=== PATIENT | male | born 1960 | race Caucasian/White ===

== ENCOUNTER → 2023-01-23 11:55 | Outpatient (BNVA) | payer OTHER, SELFPAY | PROVIDERS: Visit Provider Nurse Practitioner Family | DX: M25.50 Pain in unspecified joint (principal); F41.9 Anxiety disorder, unspecified; F32.A Depression, unspecified; D64.9 Anemia, unspecified | CPT/HCPCS: 80053; 80061; 82306; 82607; 83550; 83735; 84443; 84550; 85025; 85651; 86038; 86140; 86200; 86431 ==

== ENCOUNTER → 2023-07-21 12:12 | Outpatient (BNVA) | payer OTHER, SELFPAY | PROVIDERS: PCP Nurse Practitioner Family; Visit Provider Nurse Practitioner Family | DX: E78.5 Hyperlipidemia, unspecified (principal); E55.9 Vitamin D deficiency, unspecified; E53.8 Deficiency of other specified B group vitamins; M10.9 Gout, unspecified; Z79.899 Other long term (current) drug therapy | CPT/HCPCS: 80053; 80061; 82306; 82607; 84443; 84550; 85025 ==

== ENCOUNTER → 2023-11-29 10:20 | Outpatient (BNVA) | payer MEDICARE, OTHER, SELFPAY | PROVIDERS: PCP Nurse Practitioner Family; Visit Provider Surgery | DX: Z12.11 Encounter for screening for malignant neoplasm of colon (principal) | CPT/HCPCS: 99024; 99203 ==

== ENCOUNTER → 2023-12-07 12:36 | Outpatient (BNVA) | payer MEDICARE, SELFPAY | PROVIDERS: PCP Nurse Practitioner Family; Visit Provider Nurse Practitioner Family | DX: R55 Syncope and collapse (principal); R53.82 Chronic fatigue, unspecified; E11.9 Type 2 diabetes mellitus without complications | CPT/HCPCS: 80053; 83036; 84443; 85025 ==

== ENCOUNTER 2023-12-14 10:26 | Day surgery (SDC) | payer MEDICARE, SELFPAY ==
[2023-12-14 11:17] VITALS: BP 116/60; PULSE 73; RESP 20; TEMP 36.4; O2SAT 93; BMI 40.1
[2023-12-14] MEDS: sodium chloride 0.9% 1,000 ML 30 ML IV (11:25)
--- NOTE | 2023-12-14 11:27 | P.HPUD_ITS ---
Surgery/Procedure H&P Update DATE OF PROCEDURE: December 14, 2023 DATE H&P PERFORMED: 11/29/23 H&P UPDATE INFORMATION: I have reviewed H&P completed within last 30 days, I have examined patient prior to procedure, No changes to prior documentation and H&P is in [facility] on date indicated PLANNED PROCEDURE: Operation Date: 12/14/23 11:45 Proposed Procedures p Colonoscopy 43236, G0121, Z12.11(Not Applicable) - Dale Damian MD
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
[2023-12-14 12:05] VITALS: BP 99/58; PULSE 78; RESP 20; TEMP 36.1; O2SAT 92
[2023-12-14 12:10] VITALS: BP 118/57; PULSE 78; RESP 20; O2SAT 90
[2023-12-14 12:20] VITALS: BP 90/77; PULSE 74; RESP 20; O2SAT 95
--- NOTE | 2023-12-14 12:50 | ANE.PACU2 ---
Inpatient post-anesthesia follow up: Airway intact: Yes Vital signs: Temperature 97.0 F Pulse Rate 74 Respiratory Rate 20 Blood Pressure 90/77 Pulse Oximetry 95 Oxygen Delivery Me thod Room Air Oxygen Flow Rate Fraction of Inspir ed Oxygen Hydration adequate: Yes Nausea and vomiting: No Pain level: 2 Mental status: Baseline
== END 2023-12-14 12:50 | disposition home or self-care (01) ==
PROVIDERS: PCP Nurse Practitioner Family; Visit Provider Surgery
PROC: 0DJD8ZZ Inspection of Lower Intestinal Tract, Via Natural or Artificial Opening Endoscopic (ICD-10-PCS; CPT 45330; 2023-12-14 11:45)
DX: Z12.11 Encounter for screening for malignant neoplasm of colon (principal)
CPT/HCPCS: 45330; J2704; J7030

== ENCOUNTER → 2023-12-27 14:55 | Outpatient (BNVA) | payer MEDICARE, SELFPAY | PROVIDERS: PCP Nurse Practitioner Family; Visit Provider Surgery | DX: Z09 Encounter for follow-up examination after completed treatment for conditions other than malignant neoplasm (principal) | CPT/HCPCS: G0463 ==

== ENCOUNTER → 2024-01-08 14:00 | Outpatient (BNVA) | payer MEDICARE, MEDICAID, SELFPAY | PROVIDERS: PCP Nurse Practitioner Family; Visit Provider Nurse Practitioner Family | DX: R53.82 Chronic fatigue, unspecified (principal); R79.89 Other specified abnormal findings of blood chemistry | CPT/HCPCS: 84439; 84443 ==

== ENCOUNTER 2024-01-25 14:42 | Outpatient (CLI) | payer MEDICARE, SELFPAY | END 2024-01-25 14:43 | disposition home or self-care (01) | LOC: SLEEP 15:05 | PROVIDERS: PCP Nurse Practitioner Family; Visit Provider Nurse Practitioner Family | DX: G47.33 Obstructive sleep apnea (adult) (pediatric) (principal); G47.36 Sleep related hypoventilation in conditions classified elsewhere | CPT/HCPCS: G0399 ==

== ENCOUNTER 2024-01-31 17:26 | Outpatient (CLI) | payer MEDICARE, SELFPAY ==
--- NOTE | 2024-01-31 17:31 | CT_ITS ---
WS: [id number] LDCT LUNG CANCER SCREENING HISTORY: NICOTINE [employer] CIG[employer]ETTES TECHNIQUE: Axial imaging performed from the apices to 1 cm below the costophrenic angles. Coronal and sagittal reformats are submitted with axial MIP series. All CT scans at [facility] use at least one of these dose optimization techniques: automated exposure control; mA and/or kV adjustment per patient size (includes targeted exams where dose is matched to clinical indication); or iterativ e reconstruction. DLP: 135.21 mGy.cm DIvol: Mean CTDIvol: 3.20 (mGy) COMPARISON: None available. Diagnostic quality: Satisfactory. Lungs: Mildly decreased lung volumes. Poor inspiratory effort. Diffuse areas of groundglass and hazy attenuation throughout both lungs. Greatest involving the anterior upper lobes. Lesser involvement of the lower lobes. No mass or nodule. Small LEFT pleural effusion. Heart: Normal size heart with no pericardial effusion.. Other findings: Small mediastinal and hilar lymph nodes. Mild atherosclerosis aorta. Small hiatal her allison. LEFT adrenal mass 1.7 cm. Very mild thickening RIGHT adrenal gland. Advanced thoracic spondylosi s. Large bridging osteophytes. CT/CT lung screening [id number] IMPRESSION: LUNG-RADS: 1S-Negative with Significant Findings FOLLOW UP: 12 Month: Continue annual screening with LDCT OTHER FINDINGS (S MODIFIER): LEFT adrenal mass 1.7 cm. Not typical for a benign adenoma on this exam. This can be further evaluated by MRI or CT with adrenal mass protocol. Marked mosaic attenuation and hazy attenuation throughout both lungs. This can be seen with asthma, bronchiolitis obliterans and hypersensitivity pneumonitis.
== END 2024-01-31 17:27 | disposition home or self-care (01) ==
PROVIDERS: PCP Nurse Practitioner Family; Visit Provider Nurse Practitioner Family
DX: Z12.2 Encounter for screening for malignant neoplasm of respiratory organs (principal); F17.210 Nicotine dependence, cigarettes, uncomplicated; J90 Pleural effusion, not elsewhere classified; K44.9 Diaphragmatic hernia without obstruction or gangrene; D35.02 Benign neoplasm of left adrenal gland; M47.814 Spondylosis without myelopathy or radiculopathy, thoracic region; M25.78 Osteophyte, vertebrae; J98.4 Other disorders of lung
CPT/HCPCS: 71271

== ENCOUNTER 2024-01-31 17:44 | Outpatient (CLI) | payer MEDICARE, SELFPAY | END 2024-01-31 17:45 | disposition home or self-care (01) | PROVIDERS: PCP Nurse Practitioner Family; Visit Provider Nurse Practitioner Family | DX: Z12.2 Encounter for screening for malignant neoplasm of respiratory organs (principal); F17.210 Nicotine dependence, cigarettes, uncomplicated; J90 Pleural effusion, not elsewhere classified; K44.9 Diaphragmatic hernia without obstruction or gangrene; D35.02 Benign neoplasm of left adrenal gland; J98.4 Other disorders of lung; M47.814 Spondylosis without myelopathy or radiculopathy, thoracic region; M25.78 Osteophyte, vertebrae | CPT/HCPCS: 71271 ==

== ENCOUNTER 2024-03-06 09:51 | Outpatient (CLI) | payer MEDICARE, SELFPAY ==
--- NOTE | 2024-03-06 10:30 | CT_ITS ---
WS: [id number] CT adrenals with and without contrast. HISTORY: E27.8 - Other specified disorders of adrenal gland Noncontrast 5 mm imaging is performed through the abdomen with attention to the adrenal glands. Addit ional 1 minute and 15 minute delayed images are then performed through the adrenal glands. CONTRAST: Omnipaque 350; 95 mL IV. DLP: 2215.[address] scans at [facility] use at least one of these dose optimization techniques: automated e xposure control; mA and/or kV adjustment per patient size (includes targeted exams where dose is matc hed to clinical indication); or iterative reconstruction. COMPARISON: Lung CT 01/31/2024 Lower thorax: Hazy groundglass attenuation at the lung bases. Small LEFT pleural effusion. Moderate h iatal hernia. ADRENAL GLANDS. RIGHT: Mild adrenal thickening. No mass. LEFT: Well-circumscribed LEFT adrenal gland mass measures 1.5 x 1.8 cm. Hounsfield units are elevated on the noncontrast exam. Absolute washout value calculated after contrast injection with delayed emmanuel ging. Absolute washout value of 78% consistent with an adenoma. Normal size liver with hepatic steatosis. Normal size spleen. Negative gallbladder and spleen. Normal aorta. Normal enhancement of each kidney. 1.5 cm cyst medial LEFT kidney. No GI tract obstruction or colitis. No adenopathy or ascites. CT/CT abdomen wo/w con [id number] IMPRESSION: 1. After additional imaging the LEFT adrenal nodule is a benign adenoma. 2. Mild hepatic steatosis. 3. Moderate size hiatal hernia.
[2024-03-06] MEDS: iohexol 350 mg/mL 500 mL Btl (per mL) IV (11:07)
[2024-03-06 11:13] LABS: Blood Urea Nitrogen 11 mg/dL (8-23)
== END 2024-03-06 09:52 | disposition home or self-care (01) ==
LOC: RAD 09:55
PROVIDERS: PCP Nurse Practitioner Family; Visit Provider Nurse Practitioner Family
DX: E27.8 Other specified disorders of adrenal gland (principal); D35.02 Benign neoplasm of left adrenal gland; K76.0 Fatty (change of) liver, not elsewhere classified; K44.9 Diaphragmatic hernia without obstruction or gangrene; R91.8 Other nonspecific abnormal finding of lung field; J90 Pleural effusion, not elsewhere classified; R93.89 Abnormal findings on diagnostic imaging of other specified body structures; N28.1 Cyst of kidney, acquired
CPT/HCPCS: 74170; 82565; 84520

== ENCOUNTER → 2024-03-21 14:33 | Outpatient (BNVA) | payer MEDICARE, SELFPAY | PROVIDERS: PCP Nurse Practitioner Family; Referring Provider Nurse Practitioner Family; Visit Provider Nurse Practitioner Family | DX: D17.22 Benign lipomatous neoplasm of skin and subcutaneous tissue of left arm (principal); L80 Vitiligo; D22.5 Melanocytic nevi of trunk; L82.1 Other seborrheic keratosis; L57.8 Other skin changes due to chronic exposure to nonionizing radiation; D48.5 Neoplasm of uncertain behavior of skin; B07.8 Other viral warts; L29.89 Other pruritus; Z78.9 Other specified health status; L53.8 Other specified erythematous conditions; L57.0 Actinic keratosis | CPT/HCPCS: 11104; 17000; 17110; 99203 ==

== ENCOUNTER → 2024-04-22 15:34 | Outpatient (BNVA) | payer MEDICARE, SELFPAY | PROVIDERS: PCP Nurse Practitioner Family; Visit Provider Nurse Practitioner Family | DX: D17.22 Benign lipomatous neoplasm of skin and subcutaneous tissue of left arm (principal); L80 Vitiligo; L82.1 Other seborrheic keratosis; L57.8 Other skin changes due to chronic exposure to nonionizing radiation; B07.8 Other viral warts; L53.8 Other specified erythematous conditions; L29.89 Other pruritus; Z78.9 Other specified health status | CPT/HCPCS: 17110; 99213 ==

== ENCOUNTER → 2024-04-24 11:36 | Outpatient (BNVA) | payer MEDICARE, SELFPAY | PROVIDERS: PCP Nurse Practitioner Family; Visit Provider Nurse Practitioner Family | DX: G25.81 Restless legs syndrome (principal); E11.9 Type 2 diabetes mellitus without complications; E55.9 Vitamin D deficiency, unspecified; Z79.899 Other long term (current) drug therapy | CPT/HCPCS: 80053; 80061; 82043; 82306; 82607; 83036; 83735; 84443; 85025 ==